=== PATIENT | male | born 1985 | race Hispanic/Latino ===

== ENCOUNTER 2020-11-15 04:04 | Emergency (ER) | payer OTHER ==
[2020-11-15 04:19] VITALS: BP 146/94
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
== END 2020-11-15 04:54 ==
LOC: ED 04:04
DX: V89.2XXA Person injured in unspecified motor-vehicle accident, traffic, initial encounter; F10.20 Alcohol dependence, uncomplicated; F17.200 Nicotine dependence, unspecified, uncomplicated; Z88.0 Allergy status to penicillin; Y93.89 Activity, other specified; Y92.89 Other specified places as the place of occurrence of the external cause; Y99.8 Other external cause status
CPT/HCPCS: 99282